=== PATIENT | male | born 1930 | race Two or more races ===

== ENCOUNTER 2017-11-07 23:46 | Inpatient (IN) | payer MEDICAID, MEDICARE ==
[~2017-11-07] VITALS: Ht 175.3 cm; Wt 85.3 kg
[2017-11-08] MEDS ORDERED: ALBUTEROL FS 2.5 MG/3 ML VIAL.NEB NEB PRN (00:30)
[2017-11-08] MEDS ORDERED: ENOXAPARIN SODIUM 40 MG/0.4 ML DISP.SYRIN SQ SCH (00:30)
[2017-11-08] MEDS ORDERED: HYDROMORPHONE INJ 2 MG/ML DISP.SYRIN IV PRN (00:30)
[2017-11-08] MEDS ORDERED: CEFTRIAXONE 1 G in IV D5W 50 ML IV SCH (00:30)
[2017-11-08] MEDS ORDERED: ONDANSETRON HCL/PF 4 MG/2 ML VIAL IVP PRN (00:30)
[2017-11-08] MEDS ORDERED: HYDROCODONE/APAP 5/325MG 1 EACH TABLET PO PRN (00:30)
[2017-11-08] MEDS ORDERED: AZITHROMYCIN 250 MG TABLET PO SCH (00:30)
[2017-11-08] MEDS ORDERED: MAG HYDROX/AL HYDROX/SIMETH 30 ML UDC PO PRN (00:30)
[2017-11-08] MEDS ORDERED: Z GUARD REMEDY 2 OZ OINT TP PRN (00:30)
[2017-11-08] MEDS ORDERED: MORPHINE SULFATE INJ 2 MG/ML DISP.SYRIN IV PRN (00:30)
[2017-11-08] MEDS ORDERED: MAGNESIUM HYDROXIDE 30 ML UDC PO PRN (00:30)
[2017-11-08] MEDS ORDERED: METO100T7 PO (01:02)
[2017-11-08] MEDS ORDERED: WARF2TAB57 PO ×2 (01:02)
[2017-11-08] MEDS ORDERED: BENA20TA2 PO (01:02)
[2017-11-08] MEDS ORDERED: HYDR-552 PO (01:02)
[2017-11-08] MEDS ORDERED: ACET-907 PO (01:02)
[2017-11-08] MEDS ORDERED: ALPR0.5T8 PO (01:02)
[2017-11-08] MEDS: IV NS 0.9% 1,000 ML IV PRN ×2 (01:34→17:44)
[2017-11-08] MEDS ORDERED: ENOXAPARIN SODIUM 40 MG/0.4 ML DISP.SYRIN SQ ONE (02:00)
[2017-11-08] MEDS ORDERED: ALPRAZOLAM 0.5 MG TABLET PO PRN (03:00)
[2017-11-08] MEDS ORDERED: ALPRAZOLAM 0.5 MG TABLET ONE (03:30)
[2017-11-08 06:37] LABS: BASOPHILS % (AUTO) 0.1 % (0.0-2.0); CALCIUM, SERUM 7.7 mg/dL (8.5-10.1); CARBON DIOXIDE 27 mmol/L (21-32); CHLORIDE 103 mmol/L (98-107); CREATININE 0.9 mg/dL (0.6-1.3); GLUCOSE 104 mg/dL (74-106); HEMATOCRIT 41 % (39-51); HEMOGLOBIN 13.7 g/dL (13.5-17.5); LYMPHOCYTES # (AUTO) 0.9 /CMM (0.8-4.8); LYMPHOCYTES % (AUTO) 8.1 % (20.0-44.0); MAGNESIUM 2.1 mg/dL (1.8-2.4); MEAN CORPUSCULAR HEMOGLOBIN 30 PG (26.0-33.0); MEAN CORPUSCULAR HGB CONC 34 g/dl (31.0-36.0); MEAN CORPUSCULAR VOLUME 90 fL (80-96); MONOCYTES # (AUTO) 0.2 /CMM (0.1-1.30); MONOCYTES % (AUTO) 2.1 % (2.0-12.0); NEUTROPHILS # (AUTO) 9.7 /CMM (1.8-8.9); NEUTROPHILS % (AUTO) 89.7 % (43.0-81.0); PLATELET COUNT (AUTO) 157 /CMM (150-450); RDW COEFFICIENT OF VARIATION 16.3 (11.5-15.0); RED BLOOD CELL COUNT(AUTO) 4.51 MIL/uL (4.5-6.0); SODIUM SERUM 139 mmol/L (136-145); UREA NITROGEN, BLOOD 18 mg/dL (7-18); WHITE BLOOD COUNT (AUTO) 10.8 K/uL (4.3-11.0)
[2017-11-08 06:40] LABS: APPEARANCE,URINE SL CLOUDY (CLEAR); BILIRUBIN,URINE NEGATIVE (NEGATIVE); BLOOD, URINE 2+ Ery/uL (NEGATIVE); COLOR,URINE YELLOW (YELLOW); KETONES,URINE 1+ (NEGATIVE); LEUKOCYTE ESTERASE ,URINE NEGATIVE (NEGATIVE); NITRITE, URINE NEGATIVE (NEGATIVE); PH,URINE 5.5 (5.0-8.0); PROTEIN,URINE 2+ mg/dl (NEGATIVE); UGLUCOSE NEGATIVE (NEGATIVE)
[2017-11-08 06:48] LABS: THYROID STIMULATING HORMONE 0.219 uIU/mL (0.358-3.74)
[2017-11-08 07:06] LABS: BACTERIA,URINE None seen /HPF (None Seen); SQUAMOUS EPITHELIAL CELL,UR Few /HPF (None Seen); WBC,URINE 0-2 /HPF (0-3)
[2017-11-08 07:32] VITALS: BP 146/76
[2017-11-08 08:00] VITALS: BP 139/74
[2017-11-08] MEDS: ACETAMINOPHEN 325 MG TABLET PO PRN (10:21)
[2017-11-08] MEDS: BENAZEPRIL HCL 20 MG TABLET PO SCH ×2 (10:25→17:38)
[2017-11-08] MEDS: METOPROLOL SUCCINATE 50 MG TAB.SR.24H PO SCH (10:25)
[2017-11-08] MEDS: POTASSIUM CHLORIDE 20 MEQ TAB.PRT.SR PO SCH ×3 (10:43→13:51)
[2017-11-08 10:44] LABS: INR 1.25 (0.87-1.13)
[2017-11-08 13:11] LABS: ABG BASE EXCESS -0.6 mmol/L; ABG OXYGEN SATURATION 96.3 % (92.0-98.5); ABG PH 7.479 (7.350-7.450); ABG PO2 83.5 mmHg (75.0-100.0); AaDO2 109.6 mmHg; COHb 0.6 % (0.5-1.5); MetHb 0.2 % (0.0-1.5); O2Hb 95.5 % (94.0-97.0); SITE, ABG Right Radial; VENT MODE, BG NASAL CANNULA
[2017-11-08 16:00] VITALS: BP 130/89
[2017-11-08] MEDS ORDERED: WARFARIN SODIUM 2 MG TABLET PO SCH (17:00)
[2017-11-08 20:00] VITALS: BP 160/82
[2017-11-08] MEDS: AZITHROMYCIN 250 MG TABLET PO SCH (20:00)
[2017-11-08] MEDS: CEFTRIAXONE 1 G in IV D5W 50 ML IV SCH (20:02)
[2017-11-08] MEDS: ACETAMINOPHEN W/ CODEINE#3 1 EA TABLET PO PRN (20:04)
[2017-11-09] VITALS: BP 144/83
[2017-11-09] MEDS: ACETAMINOPHEN W/ CODEINE#3 1 EA TABLET PO PRN (03:13)
[2017-11-09 04:00] VITALS: BP 143/90
[2017-11-09 06:33] LABS: HEMATOCRIT 37 % (39-51); HEMOGLOBIN 12.4 g/dL (13.5-17.5); LYMPHOCYTES # (AUTO) 0.8 /CMM (0.8-4.8); LYMPHOCYTES % (AUTO) 10.4 % (20.0-44.0); MEAN CORPUSCULAR HEMOGLOBIN 30 PG (26.0-33.0); MEAN CORPUSCULAR HGB CONC 34 g/dl (31.0-36.0); MEAN CORPUSCULAR VOLUME 90 fL (80-96); MONOCYTES # (AUTO) 0.3 /CMM (0.1-1.30); MONOCYTES % (AUTO) 4.1 % (2.0-12.0); NEUTROPHILS # (AUTO) 6.9 /CMM (1.8-8.9); NEUTROPHILS % (AUTO) 85.5 % (43.0-81.0); PLATELET COUNT (AUTO) 156 /CMM (150-450); RDW COEFFICIENT OF VARIATION 16.9 (11.5-15.0); RED BLOOD CELL COUNT(AUTO) 4.12 MIL/uL (4.5-6.0); WHITE BLOOD COUNT (AUTO) 8.1 K/uL (4.3-11.0)
[2017-11-09 06:51] LABS: ALANINE AMINOTRANSFERASE 57 U/L (12-78); ALBUMIN 1.9 g/dL (3.4-5.0); ALKALINE PHOSPHATASE 77 U/L (46-116); ASPARTATE AMINOTRANSFERASE 97 U/L (15-37); BILIRUBIN,TOTAL 0.7 mg/dL (0.2-1.0); CALCIUM, SERUM 7.7 mg/dL (8.5-10.1); CARBON DIOXIDE 24 mmol/L (21-32); CHLORIDE 106 mmol/L (98-107); CREATININE 0.9 mg/dL (0.6-1.3); GLUCOSE 111 mg/dL (74-106); MAGNESIUM 2.1 mg/dL (1.8-2.4); PHOSPHORUS 1.7 mg/dL (2.5-4.9); POTASSIUM 3.4 mmol/L (3.5-5.1); SODIUM SERUM 139 mmol/L (136-145); TOTAL PROTEIN, SERUM 5.8 g/dL (6.4-8.2); UREA NITROGEN, BLOOD 17 mg/dL (7-18)
[2017-11-09 06:52] LABS: TROPONIN I < 0.017 ng/mL (0.00-0.056)
[2017-11-09 07:04] LABS: INR 1.47 (0.87-1.13)
[2017-11-09 07:16] VITALS: BP 145/89
[2017-11-09] MEDS: NEUTRA PHOS 1 POWD.PACKET PO SCH ×2 (08:21→16:12)
[2017-11-09] MEDS: POTASSIUM CHLORIDE 20 MEQ TAB.PRT.SR PO SCH ×2 (08:22→09:45)
[2017-11-09] MEDS: METOPROLOL SUCCINATE 50 MG TAB.SR.24H PO SCH (09:45)
[2017-11-09] MEDS: IV NS 0.9% 1,000 ML IV PRN ×2 (10:18→17:25)
[2017-11-09] MEDS: BENAZEPRIL HCL 20 MG TABLET PO SCH ×2 (10:21→17:17)
[2017-11-09] MEDS: ACETAMINOPHEN 325 MG TABLET PO PRN (14:08)
[2017-11-09 16:00] VITALS: BP 130/72
[2017-11-09] MEDS: LACTOBACILLUS RHAMNOSUS GG 1 EACH CAP.SPRINK PO SCH (17:17)
[2017-11-09] MEDS: WARFARIN SODIUM 2 MG TABLET PO SCH (17:20)
[2017-11-09] MEDS: AZITHROMYCIN 250 MG TABLET PO SCH (19:11)
[2017-11-09 20:00] VITALS: BP 145/94
[2017-11-09] MEDS: CEFTRIAXONE 1 G in IV D5W 50 ML IV SCH (20:34)
[2017-11-09] MEDS: ZOLPIDEM TARTRATE 5 MG TABLET PO PRN (23:49)
[2017-11-10] MEDS: ACETAMINOPHEN 325 MG TABLET PO PRN (03:52)
[2017-11-10 06:55] LABS: EOSINOPHILS # (AUTO) 0.1 /CMM (0.0-0.7); EOSINOPHILS % (AUTO) 2.2 % (0.0-6.0); HEMATOCRIT 37 % (39-51); HEMOGLOBIN 12.6 g/dL (13.5-17.5); LYMPHOCYTES # (AUTO) 0.9 /CMM (0.8-4.8); LYMPHOCYTES % (AUTO) 13.4 % (20.0-44.0); MEAN CORPUSCULAR HEMOGLOBIN 30 PG (26.0-33.0); MEAN CORPUSCULAR HGB CONC 34 g/dl (31.0-36.0); MEAN CORPUSCULAR VOLUME 90 fL (80-96); MONOCYTES # (AUTO) 0.5 /CMM (0.1-1.30); MONOCYTES % (AUTO) 7.2 % (2.0-12.0); NEUTROPHILS # (AUTO) 5.1 /CMM (1.8-8.9); NEUTROPHILS % (AUTO) 77.2 % (43.0-81.0); PLATELET COUNT (AUTO) 169 /CMM (150-450); RDW COEFFICIENT OF VARIATION 17.4 (11.5-15.0); RED BLOOD CELL COUNT(AUTO) 4.15 MIL/uL (4.5-6.0); WHITE BLOOD COUNT (AUTO) 6.6 K/uL (4.3-11.0)
[2017-11-10 07:01] LABS: ALANINE AMINOTRANSFERASE 83 U/L (12-78); ALBUMIN 1.8 g/dL (3.4-5.0); ALKALINE PHOSPHATASE 97 U/L (46-116); ASPARTATE AMINOTRANSFERASE 147 U/L (15-37); BILIRUBIN,DIRECT 0.2 mg/dL (0.0-0.2); BILIRUBIN,TOTAL 0.6 mg/dL (0.2-1.0); CALCIUM, SERUM 7.5 mg/dL (8.5-10.1); CARBON DIOXIDE 25 mmol/L (21-32); CHLORIDE 107 mmol/L (98-107); CREATININE 0.8 mg/dL (0.6-1.3); GLUCOSE 105 mg/dL (74-106); POTASSIUM 3.4 mmol/L (3.5-5.1); SODIUM SERUM 140 mmol/L (136-145); TOTAL PROTEIN, SERUM 5.7 g/dL (6.4-8.2); UREA NITROGEN, BLOOD 18 mg/dL (7-18)
[2017-11-10 07:15] LABS: INR 2.08 (0.87-1.13)
[2017-11-10 08:00] VITALS: BP 155/78
[2017-11-10] MEDS: LACTOBACILLUS RHAMNOSUS GG 1 EACH CAP.SPRINK PO SCH ×2 (09:05→16:46)
[2017-11-10] MEDS: POTASSIUM CHLORIDE 20 MEQ TAB.PRT.SR PO SCH ×3 (09:05→11:07)
[2017-11-10] MEDS: BENAZEPRIL HCL 20 MG TABLET PO SCH ×2 (09:05→16:46)
[2017-11-10] MEDS: METOPROLOL SUCCINATE 50 MG TAB.SR.24H PO SCH (09:05)
[2017-11-10 16:00] VITALS: BP_SYST 150; BP_SYST 158; BP_DIAS 50; BP_DIAS 79
[2017-11-10] MEDS: WARFARIN SODIUM 2 MG TABLET PO SCH (16:48)
[2017-11-10] MEDS: IV NS 0.9% 1,000 ML IV PRN (16:55)
[2017-11-10] MEDS: AZITHROMYCIN 250 MG TABLET PO SCH (18:13)
[2017-11-10 20:00] VITALS: BP 155/93
[2017-11-10 20:29] VITALS: BP 155/93
[2017-11-10] MEDS: ZOLPIDEM TARTRATE 5 MG TABLET PO PRN (20:57)
[2017-11-10] MEDS: CEFTRIAXONE 1 G in IV D5W 50 ML IV SCH (20:57)
[2017-11-11] MEDS: ACETAMINOPHEN W/ CODEINE#3 1 EA TABLET PO PRN (03:53)
[2017-11-11 08:00] VITALS: BP 147/84
[2017-11-11 08:08] VITALS: BP 144/81
[2017-11-11] MEDS: BENAZEPRIL HCL 20 MG TABLET PO SCH (08:41)
[2017-11-11] MEDS: LACTOBACILLUS RHAMNOSUS GG 1 EACH CAP.SPRINK PO SCH (08:41)
[2017-11-11 08:42] VITALS: BP 144/81
[2017-11-11] MEDS: METOPROLOL SUCCINATE 50 MG TAB.SR.24H PO SCH (08:42)
[2017-11-11 09:24] LABS: MAGNESIUM 2.1 mg/dL (1.8-2.4); PHOSPHORUS 2.7 mg/dL (2.5-4.9)
[2017-11-11] MEDS: ACETAMINOPHEN 325 MG TABLET PO PRN (11:57)
[2017-11-12] MEDS ORDERED: WARFARIN SODIUM 2 MG TABLET PO SCH (17:00)
== END 2017-11-11 12:25 | disposition home or self-care (01) | DRG 720 ==
LOC: MED 23:46 → TELE 11-08 05:22 → MED 11-09 08:12
PROVIDERS: ADMIT Internal Medicine; ATTEND Internal Medicine
DX: A41.9 Sepsis, unspecified organism (principal); J18.9 Pneumonia, unspecified organism; I48.2 Chronic atrial fibrillation; E88.89 Other specified metabolic disorders; E86.0 Dehydration; K70.10 Alcoholic hepatitis without ascites; E05.90 Thyrotoxicosis, unspecified without thyrotoxic crisis or storm; E78.5 Hyperlipidemia, unspecified; E87.6 Hypokalemia; F41.9 Anxiety disorder, unspecified; Z79.01 Long term (current) use of anticoagulants; I10 Essential (primary) hypertension; Z86.73 Personal history of transient ischemic attack (TIA), and cerebral infarction without residual deficits; K21.9 Gastro-esophageal reflux disease without esophagitis; I51.7 Cardiomegaly; I70.90 Unspecified atherosclerosis; J40 Bronchitis, not specified as acute or chronic; E83.39 Other disorders of phosphorus metabolism; F10.21 Alcohol dependence, in remission
CPT/HCPCS: 36415; 36600; 71045-TC; 80048-TC; 80053-TC; 80061-TC; 80076-TC; 81000-TC; 82306; 83605-TC; 83735-TC; 84100-TC; 84300-TC; 84439-TC; 84443-TC; 84484-TC; 85025-TC; 85610-TC; 85730-TC; 87040-TC; 87081-TC; 93307-TC; J0696; J1650; J7030; J7060; Z7610

== ENCOUNTER 2017-11-13 13:18 | Outpatient (CLI) | payer MEDICAID, MEDICARE ==
[~2017-11-13 13:18] MED LIST: ACET-907 PO; ALPR0.5T8 PO; BENA20TA2 PO; HYDR-552 PO; METO100T7 PO; WARF2TAB57 PO
[2017-11-13 13:38] VITALS: BP 144/78
== END 2017-11-13 23:59 | disposition home or self-care (01) ==
LOC: MSC 13:18
PROVIDERS: ATTEND Internal Medicine
DX: J18.1 Lobar pneumonia, unspecified organism (principal); E78.5 Hyperlipidemia, unspecified; I10 Essential (primary) hypertension; E87.6 Hypokalemia; I48.2 Chronic atrial fibrillation; E05.90 Thyrotoxicosis, unspecified without thyrotoxic crisis or storm; A41.9 Sepsis, unspecified organism; R50.9 Fever, unspecified; R00.0 Tachycardia, unspecified